=== PATIENT | male | born 1945 | race Caucasian/White ===

== ENCOUNTER → 2017-01-11 | Outpatient (CLI) | payer MEDICARE, MEDICAID ==
[~2017-01-11] MED LIST: AMLACTIN400 GM TOP; CALCIUM 600+D1 EAC2 PO; KEPPRA750 MG PO; LAMISIL AT12 GM TOP; LAMISIL250 MG PO; TUMS500 MG PO; VITAMIN D1000 UNI1 PO; VITAMIN D31000 UNI1 PO; ZESTRIL20 MG PO
== END | disposition short-term general hospital (02) ==
LOC: CLNEUR 10:41
DX: G40.909 Epilepsy, unspecified, not intractable, without status epilepticus (principal)